=== PATIENT | female | born 1985 | race African-American/Black ===

== ENCOUNTER 2017-12-08 23:29 | Emergency (ER) | payer OTHER ==
[2017-12-09] MEDS ORDERED: MACR100C2 PO (00:05)
--- NOTE | 2017-12-09 00:05 | PD ---
HPI Chief Complaint Right sided abdominal pain Date Seen: December 08, 2017 Time Seen: 23:55 Travel History International Travel<30 Days: No Contact w/Intl Traveler<30Days: No Known Affected Area: No History of Present Illness HPI Patient is 31-year-old white female previous 231 weeks who gets her care in [place] and presented to the [place] to ER with R sided pain full workup done but did not check her cervix or monitor the baby's or do an ultrasound so they sent her here to [place] for those items. Patient has no leakage of fluid or bleeding. heart rate tracing is reactive she is not santino on a regular basis Weeks Gestation: 31 Para: 2 : 3 History Obstetric History Obstetric History 2 C-sections in the past Past Surgical History Narrative Surgical 2 C-sections Social History Alcohol Use: No Tobacco Use: No Substance Abuse: No Allergies-Medications (Allergen,Severity, Reaction): Coded Allergies: Penicillins (Verified Allergy, Intermediate, hives, 12/08/17) Review of Systems General / Constitutional: No: Fever, Weight Gain, Chills, Other Eyes: No: Diploplia, Blurred Vision, Visual changes, Pain, Photophobia HENT: No: Headaches, Vertigo, Lightheadedness Cardiovascular: No: Irregular Rhythm, Chest Pain or Discomfort, Palpitations, Tachycardia, Syncope, Varicosities, Edema, Cyanosis Respiratory: No: Cough, Short of Breath, Other Gastrointestinal: Abdominal Pain, No: Nausea, Vomiting, Diarrhea Genitourinary: No: Decreased Urinary Output, Oliguria Musculoskeletal: No: Limited ROM, Weakness, Cramping, Edema, Pain Skin: No Rash, No Itching, No Dryness, No Lumps, No Change in Pigmentation, No Change in Nails, No Alopecia, No Lesions Neurologic: No: Weakness, Dizziness, Syncope, Focal Abnormalities, Coordination Problem, Headache, Slurred Speech, Seizures Psychiatric: No: Depression, Suicidal Ideations, Homicidal Ideation Endocrine: No: Heat Intolerance, Cold Intolerance, Polydipsia, Polyuria, Other Physical Exam Narrative GENERAL: Well-nourished, well-developed patient. SKIN: Warm and dry. HEAD: Normocephalic and atraumatic. EYES: No scleral icterus. No injection or drainage. ENT: No nasal drainage noted. Mucous membranes pink. Airway patent. NECK: Supple, trachea midline. No JVD. CARDIOVASCULAR: Regular rate and rhythm without murmurs, gallops, or rubs. RESPIRATORY: Breath sounds equal bilaterally. No accessory muscle use. BREASTS: Bilateral exam showed no masses , no retractions, no nipple discharge. ABDOMEN/GI: Abdomen soft, non-tender, bowel sounds present, no rebound, no guarding Gravid to [-31] weeks size Fundal Height: [31-] GENITOURINARY: External Genitalia: intact and normal in appearance BUS glands: [-] Cervix: [post-] Dilatation: [-0] Effacement: [0-] Station: [-3] Membranes: [intact ] Uterine Contractions: [-no reg ] FHT's: Category: [1-] Baseline: [-133] Reactive: [-R] Variability: [mod-] Decels: [none-] EXTREMITIES: No cyanosis or edema. BACK: Nontender without obvious deformity. No CVA tenderness. NEUROLOGICAL: Awake and alert. Motor and sensory grossly within normal limits. Five out of 5 muscle strength in all muscle groups. Normal speech. Data Data Labs See labs from the [place] ER extensive workup done urinalysis there did show moderate bacteria and did culture the urine so would consider that a UTI with asymptomatic bacteriuria and will treat with Macrobid MDM Interpretation(s) Patient is a 31-year-old white female previous 2 at 31 weeks he gets her care in [place] and presented the [facility] ER then was sent here. She has no obstetric issue no bleeding, leakage, or contraction, urinalysis consistent with mild bladder infection and ASB Plan Plan Macrobid 100 mg p.o. twice daily for a week, increase p.o. fluids, Tylenol as needed, heating pad or hot bath for symptom relief, follow-up with her OB provider Diagnosis Diagnosis: Primary Impression: Abdominal pain during in third trimester Additional Impressions: UTI (urinary tract infection) in in third trimester 31 weeks gestation of Disposition: DISCHARGE HOME Condition: Stable Scripts Nitrofurantoin Monohydrate Macrocrystals (Macrobid) 100 Mg Cap 100 MG PO BID for Infection for 7 Days, #14 CAP 0 Refills Prov: Asad Brewster II, MD 12/09/17 Asad Brewster II, MD December 09, 2017 00:05
== END 2017-12-09 00:55 | disposition home or self-care (01) ==
LOC: HOBED 23:29
DX: O26.893 Other specified pregnancy related conditions, third trimester (principal); O23.43 Unspecified infection of urinary tract in pregnancy, third trimester; Z3A.31 31 weeks gestation of pregnancy; Z88.0 Allergy status to penicillin
CPT/HCPCS: 80053; 81001; 83690; 85025; 87086; 96360; 99284; J7030; 99283